=== PATIENT | female | born 1995 ===

== ENCOUNTER 2024-01-18 16:15 | Emergency (ER) | payer OTHER ==
--- NOTE | 2024-02-17 13:39 | CT ---
EXAM: CT head without contrast. CT angiogram head and neck with contrast. DATE OF EXAM: 01/18/24 INDICATION: Patient age:IGNACIO CUMMINS : 1995 Reason for study: Dizziness and headache COMPARISON: None, please note PACS downtime occurred during the radiologist interpretation of these i mages with limited priors/reports. TECHNIQUE: Multiple axial CT images of the brain were obtained without IV contrast. One or more CT dose reductio n strategies were utilized during this examination. One or more CT dose reduction strategies were utilized during this examination. DLP 1122 mGycm. Axially acquired helical CT angiogram of the head was obtained with contrast utilizing 65 cc of Isovu e-370 administered intravenously. Axial images are supplemented with 3D reconstructions which were po st-processed at an independent workstation. Axially acquired helical CT Angiogram of the Neck was obtained with and without contrast utilizing 65 mL of Isovue-370 administered intravenously. Axial images are supplemented with coronal and sagittal MIP reconstructions. 3D reconstructions were also performed and were post-processed at an [employer] workstation. Estimated carotid stenosis was calculated using the NASCET criteria. One or more CT dose reduction strategies were utilized during this examination. DLP 572.4 mGycm. FINDINGS: Extra-axial spaces: No abnormal extra-axial fluid collections. Ventricular system: Within normal limits Cerebral parenchyma: No acute intraparenchymal hemorrhage or mass effect. The alfaro-white junction is well differentiated. Cerebellum: Unremarkable. Mass effect: No evidence of midline shift. Intracranial vasculature: unremarkable Soft tissues: Normal. Calvarium/osseous structures: No depressed skull fracture. Paranasal sinuses and mastoid air cells: Clear. Visualized orbits: Orbital contents are intact. No evidence of acute intracranial hemorrhage, mass effect, or midline shift. The ventricles, sulci, a nd cisterns are unremarkable. Vertebral arteries: The vertebral arteries are patent. Codominant vertebral arteries. Basilar artery: The basilar artery is intact. The basilar artery bifurcation is normal. Internal Carotid arteries: The cervical, petrous, cavernous and supraclinoid segments are normal. LONI: Patent with no evidence of aneurysm. ACOM: Present without evidence of aneurysm. MCA: Patent with no evidence of aneurysm. PROFESSOR OF FRENCH: Patent with no evidence of aneurysm. PCOM: Hypoplastic bilaterally. RIGHT CAROTID SYSTEM: The common carotid artery is patent. Carotid bifurcation demonstrates no hemody namically significant stenosis. Internal carotid artery is patent. LEFT CAROTID SYSTEM: The common carotid artery is patent. Carotid bifurcation demonstrates no hemody namically significant stenosis. Internal carotid artery is patent. The origins of the great vessels and vertebral arteries appear unremarkable. Vertebral arteries are c odominant and patent. No aneurysmal dilation or dissection. IMPRESSIONS: 1. No evidence for dissection or aneurysm of the vertebral or carotid arteries. 2. No significant stenosis involving the carotid bifurcations. 3. No evidence of high-grade stenosis or intracranial aneurysm. 4. No acute intracranial process.
== END 2024-01-18 21:23 | disposition home or self-care (01) ==
LOC: EC 16:15 → MERGE 16:15 → EC 21:23
DX: R51.9 Headache, unspecified (principal)
CPT/HCPCS: 70496; 70450; 70498; 99284; Q9967